=== PATIENT | female | born 1980 | race Caucasian/White ===

== ENCOUNTER 2017-11-23 19:27 | Outpatient (CLI) | payer OTHER ==
[~2017-11-23] VITALS: Ht 175.3 cm; Wt 93.6 kg
[~2017-11-23 19:27] MED LIST: IBUP-1222 PO; PREN1TAB28 PO
[2017-11-23] MEDS ORDERED: LACTATED RINGERS 500 ML IVBOLUS ONE (19:30)
[2017-11-23] MEDS ORDERED: LACTATED RINGERS 1,000 ML IV SCH (19:30)
[2017-11-23] MEDS ORDERED: ONDANSETRON 2MG/ML, 2ML IVPush PRN (19:30)
[2017-11-23] MEDS ORDERED: ONDANSETRON 2MG/ML, 2ML ONE (19:51)
[2017-11-23] MEDS ORDERED: METOCLOPRAMIDE 5 MG/ML, 2ML ONE (19:51)
[2017-11-23] MEDS ORDERED: D5%-LACTATED RINGERS 1,000 ML IV SCH (20:00)
[2017-11-23] MEDS ORDERED: PLEASE ENTER HEIGHT AND WEIGHT MC SCH (20:00)
[2017-11-23] MEDS ORDERED: METOCLOPRAMIDE 5 MG/ML, 2ML IVPush ONE (20:00)
[2017-11-23 20:24] LABS: BASOPHILS # (AUTO) 0.01 x10^3/uL (0-0.1); BASOPHILS % (AUTO) 0 % (0-1); EOSINOPHILS # (AUTO) 0.01 x10^3/uL (0-0.4); EOSINOPHILS % (AUTO) 0 % (1-7); LYMPHOCYTES # (AUTO) 1.26 x10^3/uL (1-3.4); LYMPHOCYTES % (AUTO) 9 % (22-44); MD NO; MEAN CORPUSCULAR HEMOGLOBIN 31.1 pg (27.0-34.8); MEAN CORPUSCULAR HGB CONC 33.9 g/dL (32.4-35.8); MEAN CORPUSCULAR VOLUME 91.8 fL (80-100); MONOCYTES # (AUTO) 0.34 x10^3/uL (0.2-0.8); MONOCYTES % (AUTO) 3 % (2-9); NEUTROPHILS # (AUTO) 12.33 x10^3/uL (1.8-6.8); NEUTROPHILS % (AUTO) 88 % (42-75); PLATELET COUNT 213 x10^3/uL (130-400); RED BLOOD COUNT 4.39 x10^6/uL (3.82-5.3); RED CELL DISTRIBUTION WIDTH 13.5 % (9.6-15.2)
[2017-11-23 20:33] LABS: ALANINE AMINOTRANSFERASE 27 U/L (12-78); ALBUMIN 3.3 g/dL (3.4-5.0); ANION GAP 10 mmol/L (5-15); CALCIUM 8.7 mg/dL (8.5-10.1); CHLORIDE 108 mmol/L (98-107); CREATININE 0.91 mg/dL (0.55-1.02)
[2017-11-23 20:34] LABS: BILIRUBIN, DIRECT < 0.1 mg/dL (0.1-0.2)
[2017-11-23 20:35] LABS: ALKALINE PHOSPHATASE 95 U/L (45-117); BILIRUBIN,TOTAL 0.3 mg/dL (0.2-1.0); TOTAL PROTEIN 7.6 g/dL (6.4-8.2)
[2017-11-23 21:36] LABS: MICROSCOPIC NOT IND
[2017-11-24] MEDS ORDERED: D5%-LACTATED RINGERS 1,000 ML IV SCH (20:00)
== END 2017-11-23 23:40 | disposition home or self-care (01) ==
LOC: LDOP 19:27
PROVIDERS: ATTEND Obstetrics & Gynecology
DX: O21.2 Late vomiting of pregnancy (principal); R82.99 Other abnormal findings in urine; Z3A.36 36 weeks gestation of pregnancy
CPT/HCPCS: 36415; 59025; 80053; 81003; 82150; 82248; 83690; 84550; 85025; 87086; 96360; 96361; 99211; J2405; J7120; J7121; G0463

== ENCOUNTER 2017-12-19 05:34 | Inpatient (IN) | payer OTHER ==
[~2017-12-19] VITALS: Ht 175.3 cm; Wt 96.8 kg
[2017-12-19] MEDS ORDERED: NEWBORN KIT ONE (05:37)
[2017-12-19] MEDS ORDERED: SODIUM CITRATE/CITRIC ACID 30 ML UDC ONE (05:37)
[2017-12-19] MEDS ORDERED: METOCLOPRAMIDE 5 MG/ML, 2ML ONE (05:37)
[2017-12-19] MEDS ORDERED: OXYTOCIN 30U/ 0.9% NaCL 500ML 0 ML ONE (05:37)
[2017-12-19] MEDS ORDERED: LACTATED RINGERS 1,000 ML IV SCH (05:38)
[2017-12-19] MEDS ORDERED: OXYTOCIN 30U/ 0.9% NaCL 500ML 500 ML IV SCH (05:38)
[2017-12-19] MEDS ORDERED: METOCLOPRAMIDE 5 MG/ML, 2ML IV ONE (06:00)
[2017-12-19] MEDS ORDERED: LACTATED RINGERS 1,000 ML IVBOLUS ONE (06:00)
[2017-12-19] MEDS ORDERED: SODIUM CITRATE/CITRIC ACID 30 ML UDC PO ONE (06:00)
[2017-12-19] MEDS ORDERED: ONDANSETRON 2MG/ML, 2ML IVPush ONE (06:00)
[2017-12-19] MEDS ORDERED: CALCIUM CARBONATE 500 MG TAB.CHEW PO PRN ×2 (06:00→09:00)
[2017-12-19] MEDS ORDERED: CEFAZOLIN PMX 1GM/50ML 50 ML IVPB ONE (06:00)
[2017-12-19 06:22] LABS: BASOPHILS # (AUTO) 0.01 x10^3/uL (0-0.1); BASOPHILS % (AUTO) 0 % (0-1); EOSINOPHILS # (AUTO) 0.09 x10^3/uL (0-0.4); EOSINOPHILS % (AUTO) 1 % (1-7); LYMPHOCYTES # (AUTO) 1.79 x10^3/uL (1-3.4); LYMPHOCYTES % (AUTO) 16 % (22-44); MD NO; MEAN CORPUSCULAR HEMOGLOBIN 30.9 pg (27.0-34.8); MEAN CORPUSCULAR HGB CONC 33.9 g/dL (32.4-35.8); MEAN CORPUSCULAR VOLUME 90.9 fL (80-100); MEAN PLATELET VOLUME 9.1 fL (7.4-10.4); MONOCYTES # (AUTO) 0.75 x10^3/uL (0.2-0.8); MONOCYTES % (AUTO) 7 % (2-9); NEUTROPHILS # (AUTO) 8.44 x10^3/uL (1.8-6.8); NEUTROPHILS % (AUTO) 76 % (42-75); PLATELET COUNT 198 x10^3/uL (130-400); RED BLOOD COUNT 3.74 x10^6/uL (3.82-5.3); RED CELL DISTRIBUTION WIDTH 13.5 % (9.6-15.2)
[2017-12-19] MEDS ORDERED: morphine SULFATE/PF 0.5 MG/ML, 10ML ONE (07:26)
[2017-12-19] MEDS ORDERED: OXYTOCIN 10 UNITS/ML, 1ML ONE (07:29)
[2017-12-19] MEDS ORDERED: CEFAZOLIN 1,000 MG ONE (07:29)
[2017-12-19] MEDS ORDERED: DEXAMETHASONE 4 MG/ML, 1ML ONE (07:29)
[2017-12-19] MEDS ORDERED: WATER-INJECTION,STERILE 10 ML IV ONE (07:29)
[2017-12-19] MEDS ORDERED: KETOROLAC 30 MG/1 ML ONE (07:29)
[2017-12-19] MEDS ORDERED: ONDANSETRON 2MG/ML, 2ML ONE ×2 (07:30→08:55)
[2017-12-19] MEDS ORDERED: PHENYLEPHRINE 10 MG/ML ONE (08:03)
[2017-12-19] MEDS ORDERED: EPHEDRINE 50 MG/ML, 1ML ONE (08:03)
[2017-12-19] MEDS: LACTATED RINGERS 1,000 ML IV SCH ×4 (08:45→17:45)
[2017-12-19] MEDS: OXYTOCIN 30U/ 0.9% NaCL 500ML 500 ML IV SCH ×2 (08:45→17:45)
[2017-12-19] MEDS ORDERED: morphine SULFATE 10 MG/ML, 1ML IVPush PRN ×3 (09:00→12:00)
[2017-12-19] MEDS ORDERED: ONDANSETRON 2MG/ML, 2ML IV PRN ×2 (09:00→12:00)
[2017-12-19] MEDS ORDERED: METOCLOPRAMIDE 5 MG/ML, 2ML IV PRN (09:00)
[2017-12-19] MEDS ORDERED: ACETAMINOPHEN 325 MG TABLET PO PRN ×2 (09:00)
[2017-12-19] MEDS: PRENATAL VIT/IRON/FA 1 EACH TABLET PO SCH (09:00)
[2017-12-19] MEDS ORDERED: MISOPROSTOL 200 MCG TABLET PR PRN (09:00)
[2017-12-19] MEDS ORDERED: OXYTOCIN 30U/ 0.9% NaCL 500ML 500 ML ONE (09:33)
[2017-12-19] MEDS ORDERED: MORPHINE SULFATE 4 MG/ML, 1ML ONE (09:48)
[2017-12-19] MEDS ORDERED: MORPHINE SULFATE 4 MG/ML, 1ML IVPush PRN (10:30)
[2017-12-19] MEDS ORDERED: OXYcodone/APAP 5/325MG TABLET ONE (10:42)
[2017-12-19] MEDS: OXYcodone/APAP 5/325MG TABLET PO PRN ×3 (10:47→19:32)
[2017-12-19 12:00] VITALS: BP 111/67
[2017-12-19] MEDS ORDERED: ONDANSETRON ODT 4 MG PO PRN (12:00)
[2017-12-19] MEDS ORDERED: DO NOT GIVE XX SCH (12:00)
[2017-12-19] MEDS ORDERED: OXYcodone/APAP 5/325MG TABLET PO PRN (12:00)
[2017-12-19] MEDS ORDERED: NALOXONE 0.4 MG/ML, 1ML IV PRN (12:00)
[2017-12-19] MEDS ORDERED: DIPHENHYDRAMINE 50 MG/ML, 1ML IVPush PRN (12:30)
[2017-12-19] MEDS ORDERED: PROMETHAZINE 25 MG/ML, 1ML IM ONE (12:30)
[2017-12-19] MEDS: KETOROLAC 30 MG/1 ML IV PRN ×2 (14:45→20:37)
[2017-12-19 16:20] VITALS: BP 122/74
[2017-12-19 17:41] LABS: MEAN CORPUSCULAR HEMOGLOBIN 29.6 pg (27.0-34.8); MEAN CORPUSCULAR HGB CONC 32.7 g/dL (32.4-35.8); MEAN CORPUSCULAR VOLUME 90.6 fL (80-100); MEAN PLATELET VOLUME 9.7 fL (7.4-10.4); PLATELET COUNT 203 x10^3/uL (130-400); RED BLOOD COUNT 3.93 x10^6/uL (3.82-5.3); RED CELL DISTRIBUTION WIDTH 13.7 % (9.6-15.2)
[2017-12-19 18:12] LABS: BASOPHILS # (AUTO) 0.01 x10^3/uL (0-0.1); BASOPHILS % (AUTO) 0 % (0-1); EOSINOPHILS % (AUTO) 0 % (1-7); LYMPHOCYTES # (AUTO) 0.78 x10^3/uL (1-3.4); LYMPHOCYTES % (AUTO) 5 % (22-44); MD SCAN; MONOCYTES # (AUTO) 0.45 x10^3/uL (0.2-0.8); MONOCYTES % (AUTO) 3 % (2-9); NEUTROPHILS # (AUTO) 15.63 x10^3/uL (1.8-6.8); NEUTROPHILS % (AUTO) 93 % (42-75)
[2017-12-19] MEDS ORDERED: DIPH,PERTUSS(ACELL),TET VAC/PF NC IM-VACC ONE (19:30)
[2017-12-19 20:00] VITALS: BP 105/66
[2017-12-20] MEDS: LACTATED RINGERS 1,000 ML IV SCH (00:56)
[2017-12-20 01:31] VITALS: BP 137/74
[2017-12-20] MEDS: OXYcodone/APAP 5/325MG TABLET PO PRN ×6 (02:28→22:03)
[2017-12-20] MEDS: KETOROLAC 30 MG/1 ML IV PRN (02:28)
[2017-12-20 05:32] VITALS: BP 117/76
[2017-12-20 06:50] VITALS: BP 119/68
[2017-12-20] MEDS: PRENATAL VIT/IRON/FA 1 EACH TABLET PO SCH (08:58)
[2017-12-20] MEDS: DOCUSATE 100 MG CAPSULE PO PRN ×2 (08:58→19:47)
[2017-12-20] MEDS: IBUPROFEN 600 MG TABLET PO PRN ×2 (13:06→19:47)
[2017-12-20 20:00] VITALS: BP 129/77
[2017-12-21] MEDS: IBUPROFEN 600 MG TABLET PO PRN ×2 (03:55→09:30)
[2017-12-21] MEDS: OXYcodone/APAP 5/325MG TABLET PO PRN ×2 (03:55→09:30)
[2017-12-21 07:45] VITALS: BP 131/81
[2017-12-21] MEDS: PRENATAL VIT/IRON/FA 1 EACH TABLET PO SCH (08:11)
[2017-12-21] MEDS ORDERED: OXYC-302 PO (10:51)
== END 2017-12-21 13:50 | disposition home or self-care (01) | DRG 766 ==
LOC: LDIP 05:34 → 2NW 11:35
PROVIDERS: ADMIT Obstetrics & Gynecology; ATTEND Obstetrics & Gynecology
PROC: 10D00Z1 Extraction of Products of Conception, Low, Open Approach (ICD-10-PCS; principal; 2017-12-19)
PROC: 0UB70ZZ Excision of Bilateral Fallopian Tubes, Open Approach (ICD-10-PCS; 2017-12-19)
DX: O34.211 Maternal care for low transverse scar from previous cesarean delivery (principal); Z30.2 Encounter for sterilization; Z37.0 Single live birth; Z3A.39 39 weeks gestation of pregnancy
CPT/HCPCS: 36415; 85025; 86850; 86900; 88302; G0378; J0690; J1100; J1885; J2274; J2405; J2550; J2270; J2370; J2590; J2765; J7120